=== PATIENT | male | born 1965 | race Caucasian/White ===

== ENCOUNTER 2021-09-02 02:50 | Observation (INO) ==
[2021-09-02] MEDS ORDERED: SODIUM CHLORIDE 0.9% 1000ML 1,000 ML IV STA (03:01)
[2021-09-02] MEDS ORDERED: MoRPHine SULFATE 4 MG/ML 1 ML CARP\\VIAL IV STA ×2 (03:01→04:15)
[2021-09-02] MEDS ORDERED: ONDANSETRON INJ 2 MG/ML 2 ML VIAL IV STA ×2 (03:01→04:40)
[2021-09-02] MEDS ORDERED: KETOROLAC TROMETHAMINE 15 MG/ML VIAL IV STA (03:01)
--- NOTE | 2021-09-02 03:37 | Emergency Department Note ---
History of Present Illness General Chief complaint: Urinary Symptoms Stated complaint: ABD PAIN,BACK,GROIN PAIN,FEEL LIKE NEED TO URINE History of Present Illness Maximum Pain Intensity: 10 This 55-year-old presents to the ER complaining of right flank pain with nausea and vomiting Location: Right flank Quality: Painful Severity: Moderate Duration: Today Timing: Today Context: Patient was in pain and came in Modifying factors: better with nothing; worse with nothing Patient denies chest pain, dyspnea, urinary symptoms, flulike illness. He has had kidney stones before and this feels similar. He does not have a local urologist. Allergies Allergy/AdvReac Type Severity Reaction Status Date / Time No Known Allergies Allergy Verified 09/02/21 05:31 Past Med/Surg History Medical History (Updated 09/02/21 @ 05:31 by Jamee Solomon DO) Kidney stones RACQUEL on CPAP Surgical History (Updated 09/02/21 @ 05:32 by Jamee Solomon DO) History of bowel resection for obstruction with necrosis Family History (Updated 09/02/21 @ 05:32 by Jamee Solomon DO) Other No significant family history Social History (Updated 09/02/21 @ 05:32 by Jamee Solomon DO) Smoking Status: Never smoker Hx Alcohol Use: No Hx Substance Use: No Preferred Language: Croatian Feels Safe at Home: Yes Review of Systems A total of 10 systems reviewed and were otherwise negative Physical Exam Vital Signs Vital Signs - 24 hr 09/02/21 02:53 09/02/21 03:01 09/02/21 05:00 Temperature 36.4 C L Temperature Source Temporal Artery Scan Pulse Rate 88 Respiratory Rate 20 17 Respiratory Effort / Characteristics Non-Labored Non-Labored Respiratory Depth Normal Normal Blood Pressure 205/120 H Blood Pressure Mean 148 Blood Pressure Position Sitting Pulse Oximetry 96 98 99 Oxygen Delivery Method Room Air Room Air Nasal Cannula Oxygen Flow Rate 95 Sepsis Recent Fever Within 48 Hours No Sepsis New/Unexplained Change in Mental Status N/A Sepsis Action Taken by Nursing No Action Required VITALS: Vitals are noted on the nurse's note and reviewed by myself. Vital signs reviewed. GENERAL: White male pacing the room who appears in pain, in no acute distress, nondiaphoretic, well-developed well-nourished. SKIN: The skin was without rashes, erythema, edema, or bruising. There is no tenting of the skin. Capillary reflex less than 2 seconds. HEAD: Normocephalic atraumatic. EARS: External auditory canals clear, EYES: Pupils equal round and reactive to light and accommodation. Conjunctivae without injection, sclerae without icterus. Extraocular movements intact. NOSE: Patent, turbinates without inflammation or discharge. MOUTH: Mucous membranes moist. Pharynx without erythema or exudate. Uvula midline. Airway patent. Tongue does not deviate. NECK: Supple without nuchal rigidity. No lymphadenopathy. No thyromegaly. Cer vical spine is nontender. No JVD. HEART: Regular rate and rhythm LUNGS: Clear to auscultation bilaterally without wheezes, rales or rhonchi. No retractions or accessory muscle use. ABDOMEN: Positive bowel sounds x 4. Normal tympanic percussion. Soft, nontender, without masses or organomegaly. Flynn sign negative. No guarding or rebound tenderness. No CVA tenderness MUSCULOSKELETAL: No muscle atrophy, erythema, or edema noted. NEURO: Patient was alert and oriented to person place and time. Normal sensation to light and sharp touch. No focal neurological deficits. Course Administered Medications Discontinued Medications Hydromorphone HCl (Hydromorphone Inj 0.5 Mg/0.5 Ml Syr) 0.5 mg IV NOW STA Stop: 09/02/21 04:41 Last Admin: 09/02/21 04:54 Dose: 0.5 mg Documented by: [id number] Sodium Chloride (Nss 1000ml) 1,000 mls @ 999 mls/hr IV .Q1H1M STA Stop: 09/02/21 04:01 Last Infusion: 09/02/21 05:43 Dose: 0 mls/hr Documented by: [id number] Admin: 09/02/21 03:35 Dose: 999 mls/hr Documented by: [id number] Ioversol (Optiray 320 100ml) 100 ml IV ONCE ONE Stop: 09/02/21 04:35 Last Admin: 09/02/21 04:35 Dose: 93 ml Documented by: [id number] Ketorolac Tromethamine (Ketorolac Tromethamine 15 Mg/Ml Vial) 10 mg IV NOW STA Stop: 09/02/21 03:02 Last Admin: 09/02/21 03:35 Dose: 10 mg Documented by: [id number] Morphine Sulfate (Morphine Sulfate 4 Mg/Ml 1 Ml Carp\Vial) 4 mg IV NOW STA Stop: 09/02/21 03:02 Last Admin: 09/02/21 03:35 Dose: 4 mg Documented by: [id number] Morphine Sulfate (Morphine Sulfate 4 Mg/Ml 1 Ml Carp\Vial) 4 mg IV NOW STA Stop: 09/02/21 04:16 Last Admin: 09/02/21 04:21 Dose: 4 mg Documented by: [id number] Ondansetron HCl (Ondansetron Inj 2 Mg/Ml 2 Ml Vial) 4 mg IV NOW STA Stop: 09/02/21 03:02 Last Admin: 09/02/21 03:35 Dose: 4 mg Documented by: [id number] Ondansetron HCl (Ondansetron Inj 2 Mg/Ml 2 Ml Vial) 4 mg IV NOW STA Stop: 09/02/21 04:41 Last Admin: 09/02/21 04:54 Dose: 4 mg Documented by: [id number] Tamsulosin HCl (Tamsulosin Hcl 0.4 Mg Cap) 0.4 mg PO NOW ONE Stop: 09/02/21 05:02 Last Admin: 09/02/21 06:00 Dose: 0.4 mg Documented by: [id number] Medical Decision Making Medical Records Attestation: I reviewed the patient's medical records. Home Medications Current Medication List: was personally reviewed by me Laboratory Data Attestation: I reviewed the patient's lab results. Result diagrams: 09/02/21 03:25 09/02/21 03:25 Lab Results 09/02/21 09/02/21 09/02/21 Range/Units 03:25 03:25 03:25 WBC 7.79 (4.8-10.8) K/uL RBC 5.31 (4.7-6.1) M/uL Hgb 15.9 (14.0-18.0) g/dL Hct 45.5 (42-52) % MCV 85.7 (80-100) fL MCH 29.9 (25-34) pg MCHC 34.9 (32-36) g/dL RDW Std Deviation 41.5 (36.4-46.3) fL RDW Coeff of Naomi 13.2 (11.5-14.5) % Plt Count 195 (130-400) K/uL MPV 11.3 H (7.4-10.4) fL Immature Gran % (Auto) 0.1 % Neut % (Auto) 62.9 % Lymph % (Auto) 23.0 % [place] % (Auto) 10.8 % Eos % (Auto) 2.8 % Baso % (Auto) 0.4 % Neut # (Auto) 4.90 (1.4-6.5) K/uL Lymph # (Auto) 1.79 (1.2-3.4) K/uL [place] # (Auto) 0.84 H (0.11-0.59) K/uL Eos # (Auto) 0.22 (0-0.5) K/uL Baso # (Auto) 0.03 (0-0.2) K/uL Immature Gran # (Auto) 0.01 (0.00-0.02) K/uL Sodium 135 L (136-145) mmol/L Potassium 4.0 (3.5-5.1) mmol/L Chloride 101 (98-107) mmol/L Carbon Dioxide 25 (21-32) mmol/L Anion Gap 9 (3-11) BUN 14 (6-23) mg/dl Creatinine 1.03 (0.6-1.4) mg/dl Est Cr Clr Drug Dosing 105.5 ml/min Est GFR ( Amer) 93.0 ml/min Est GFR (Non-Af Amer) 80.3 ml/min BUN/Creatinine Ratio 13.6 (10-20) Glucose 130 H (70-99(Fasting)) mg/dl Calcium 9.2 (8.5-10.1) mg/dl Total Bilirubin 0.7 (0.2-1.0) mg/dl AST 30 (13-39) U/L ALT 27 (7-52) U/L Alkaline Phosphatase 48 (34-104) U/L Total Protein 7.4 (6.0-8.3) gm/dl Albumin 4.6 (3.4-5.0) gm/dl Globulin 2.8 (2.5-4.0) gm/dl Albumin/Globulin Ratio 1.6 (0.9-2) Urine Color Yellow Urine Appearance Clear (Clear) Urine pH 5.0 (4.5-7.5) Ur Specific [place] 1.017 (1.000-1.030) Urine Protein 1+ H (Negative) Urine Glucose (UA) Negative (Negative) Urine Ketones Negative (Negative) Urine Blood 3+ H (Negative) Urine Nitrite Negative (Negative) Urine Bilirubin Negative (Negative) Urine Urobilinogen Negative (Negative) Ur Leukocyte Esterase Negative (Negative) Urine WBC (Auto) 1-5 (0-5) /hpf Urine RBC (Auto) 5-10 H (0-4) /hpf U Hyaline Cast (Auto) 1-5 (0-5) /lpf U Epithel Cells (Auto) 0-5 (0-5) /lpf Urine Bacteria (Auto) Negative (Negative) Imaging Data Attestation: I personally reviewed and interpreted this imaging study as follows: MDM Narrative Prior records/ancillary studies reviewed. Triage Nursing notes reviewed. Additional history obtained from the family. The patient's history was concerning for flank pain. Differential diagnosis: Etiologies such as renal colic, appendicitis, diverticulitis, mesenteric ischemia, aortic pathology, infections, inflammatory bowel disease, PUD, biliary pathology, UTI, as well as others were entertained. Physical examination findings: As above. ER treatment provided: morphine, toradol, zofran , nss, morphine, Dilaudid On reassessment the patient felt better. Diagnostic interpretation by me: The labs revealed mild hyperglycemia without DKA urinalysis revealed There was no sign of UTI. Imaging studies: Preliminary Findings Only See Final Report For Complete Findings CT ABDOMEN & PELVIS With Contrast: IMPRESSION: Punctate right UVJ stone with mild proximal hydroureteronephrosis and prominent perinephric inflammatory stranding/fluid. Punctate nonobstructing stones in the left kidney. No free air or free fluid. Bowel sutures within the right upper quadrant without evidence of obstruction. No evidence of acute appendicitis. Small midline ventral abdominal hernia containing nonobstructed small bowel loops. Hepatic steatosis. Solid organs are otherwise unremarkable on a non-infused exam. Radiologist: Dario Landrum M.D. Consultation: A consultation was placed with the hospitalist. The case was discussed and diagnostics were reviewed. The patient was evaluated in the ER for further treatment. It appears that the patient has isolated renal colic from a right sided stone. Patient was still in severe amount of pain despite multiple rounds of pain meds. Medicine was consulted. He will be evaluated for admission. By the evaluation outlined above emergent etiologies such as appendicitis, diverticulitis, mesenteric ischemia, aortic pathology, infections, inflammatory bowel disease, PUD, biliary pathology, UTI, as well as others were deemed relatively unlikely. The pt informed about the findings as listed above. All questions were answered and pleased with the treatment. The chart was completed utilizing [employer] Speech voice recognition software. Grammatical errors, random word insertions, pronoun errors, and incomplete sentences are an occassional consequence of this system due to software limitations, ambient noise, and hardware issues. Any formal questions or concerns about the content, text, or information contained within the body of this dictation should be directly addressed to the physician compliance assistant for clarification. Impression & Plan Renal colic on right side, Ureterolithiasis, Intractable pain Discharge Plan Visit Data Chief Complaint: Urinary Symptoms Stated Complaint: ABD PAIN,BACK,GROIN PAIN,FEEL LIKE NEED TO URINE ED Provider: Clark Dennison ED Midlevel Provider: Mary Mayfield Discharge Problem: Renal colic on right side, Ureterolithiasis, Intractable pain Patient Disposition: Admitted As Inpatient Condition: Good Forms Stand Alone Forms: My [facility] Referrals Referrals: PCP,NO [Primary Care Provider] -
[2021-09-02 03:41] LABS: Basophils # (auto) 0.03 K/uL (0-0.2); Basophils % (auto) 0.4 %; Eosinophils # (auto) 0.22 K/uL (0-0.5); Eosinophils % (auto) 2.8 %; Hematocrit (blood only) 45.5 % (42-52); Hemoglobin 15.9 g/dL (14.0-18.0); Immature Granulocytes # (auto) 0.01 K/uL (0.00-0.02); Immature Granulocytes % (auto) 0.1 %; Lymphocytes # (auto) 1.79 K/uL (1.2-3.4); Mean Corpuscular Hemoglobin 29.9 pg (25-34); Mean Corpuscular Hgb Conc 34.9 g/dL (32-36); Mean Corpuscular Volume 85.7 fL (80-100); Mean Platelet Volume 11.3 fL (7.4-10.4); Monocytes # (auto) 0.84 K/uL (0.11-0.59); Monocytes % (auto) 10.8 %; Neutrophils % (auto) 62.9 %; Platelet Count 195 K/uL (130-400); RDW Coefficient of Variation 13.2 % (11.5-14.5); RDW Standard Deviation 41.5 fL (36.4-46.3); Red Blood Count 5.31 M/uL (4.7-6.1); White Blood Count 7.79 K/uL (4.8-10.8)
[2021-09-02 04:10] LABS: Albumin Globulin Ratio 1.6 (0.9-2); Albumin Level 4.6 gm/dl (3.4-5.0); BUN Creatinine Ratio 13.6 (10-20); Bilirubin,Total 0.7 mg/dl (0.2-1.0); Calcium 9.2 mg/dl (8.5-10.1); Creatinine Clr Calc Pharmacy 105.5 ml/min; Est GFR (Non-African American) 80.3 ml/min; Globulin 2.8 gm/dl (2.5-4.0); Total Protein 7.4 gm/dl (6.0-8.3)
[2021-09-02 04:17] LABS: Appearance Urine Clear (Clear); Bacteria Urine Automated Negative (Negative); Bilirubin Urine Negative (Negative); Blood Urine 3+ (Negative); Color Urine Yellow; Epithelial Cell Urine Auto 0-5 /lpf (0-5); Glucose Urine UA Negative (Negative); Ketones Urine Negative (Negative); Leukocyte Esterase Urine Negative (Negative); Nitrite Urine Negative (Negative); Protein Urine 1+ (Negative); Specific Gravity Urine 1.017 (1.000-1.030); Urobilinogen Urine Negative (Negative)
[2021-09-02] MEDS ORDERED: OPTIRAY 320 100ml IV ONE (04:34)
[2021-09-02] MEDS ORDERED: HYDROmorphone INJ 0.5 MG/0.5 ML SYR IV STA (04:40)
[2021-09-02] MEDS ORDERED: TAMSULOSIN HCL 0.4 MG CAP PO ONE (05:01)
--- NOTE | 2021-09-02 05:36 | History & Physical Report ---
Date of Service September 02, 2021 Assessment & Plan (1) Ureterolithiasis: Plan: Suspect right sided renal stone. Visible on imaging with apparent stranding. Formal read on imaging pending. UA without bacteria -Admit to medical -Await CT reading -Strain urine -Zofran PRN -Morphine PRN -Toradol PRN -Continue Flomax -Urology consultation appreciated (2) RACQUEL on CPAP: Plan: CPAP qHS - 9cmH20 Plan: F/E/N - LR at 125mL/hr x 2 liters, electrolytes WNL, NPO for now Ppx - Low risk for DVT Code - Full per discussion with patient Dispo - Admit to medical History of Present Illness Chief Complaint: right flank pain Primary Care Provider: NO PCP Kartik Cobos is a 55yo male with history of renal stones presenting with acute onset of right flank pain. Patient was in his usual state of health this evening. Woke up around 23:30 to use the bathroom and developed severe acute right flank pain. Pain travels from back into the groin, intermittent, 10/10 in severity with associated nausea. Similar to prior renal stone pain. No additional complaints. Patient denies chest pain, cough, SOB, abdominal pain, vomiting, diarrhea ER Course: Zofran 4mg IV x 2 Morphine 4mg x 2 Dilaudid 0.5mg Toradol 10mg NSS x 1L Allergies Allergy/AdvReac Type Severity Reaction Status Date / Time No Known Allergies Allergy Verified 09/02/21 05:31 Past Med/Surg History Medical History (Updated 09/02/21 @ 05:31 by Jamee Solomon DO) Kidney stones RACQUEL on CPAP Surgical History (Updated 09/02/21 @ 05:32 by Jamee Solomon DO) History of bowel resection for obstruction with necrosis Family History (Updated 09/02/21 @ 05:32 by Jamee Solomon DO) Other No significant family history Social History (Updated 09/02/21 @ 05:32 by Jamee Solomon DO) Smoking Status: Never smoker Hx Alcohol Use: No Hx Substance Use: No Preferred Language: Guatemalan Feels Safe at Home: Yes Review of Systems Review of Systems: All systems reviewed & are unremarkable except as noted in HPI & below Physical Exam Physical Exam: General: patient resting in mild distress secondary to right flank pain, non-toxic in appearance, AA&O x 4 Skin: warm, dry, intact, no rashes or lesions HEENT: NC/AT, PERRL, EOMI, anicteric sclera, conjunctiva without injection, external ear normal to inspection and nontender, nares patent, moist mucus membranes, dentition intact, no oropharyngeal lesions, neck supple, trachea midline, no LAD, no thyromegaly, no JVD Heart: +S1/S2, regular, no m/r/g Lungs: equal air entry bilaterally, no rales/rhonchi/wheezes Abd: +BS, soft, mildly distended with diminished bowel sounds, no masses/organomegaly/ascites +right sided abdominal pain and flank pain Ext: warm, 2+ pulses in UE/LE bilaterally, no clubbing/cyanosis or edema Neuro: nonfocal, patient AA&O x 4, speech intact, no facial droop, moving all extremities on command with equal strength 5/5 Results & Data Results & Data ([facility]) Vital Signs (Past 12 Hours) Vital Signs Temp Pulse Resp BP Pulse Ox 09/02/21 05:00 17 99 09/02/21 03:01 98 09/02/21 02:53 36.4 C L 88 20 205/120 H 96 Laboratory Results Laboratory Results WBC 7.79 K/uL (4.8-10.8) 09/02/21 03:25 RBC 5.31 M/uL (4.7-6.1) 09/02/21 03:25 Hgb 15.9 g/dL (14.0-18.0) 09/02/21 03:25 Hct 45.5 % (42-52) 09/02/21 03:25 MCV 85.7 fL (80-100) 09/02/21 03:25 MCH 29.9 pg (25-34) 09/02/21 03:25 MCHC 34.9 g/dL (32-36) 09/02/21 03:25 RDW Std Deviation 41.5 fL (36.4-46.3) 09/02/21 03:25 RDW Coeff of Naomi 13.2 % (11.5-14.5) 09/02/21 03:25 Plt Count 195 K/uL (130-400) 09/02/21 03:25 MPV 11.3 fL (7.4-10.4) H 09/02/21 03:25 Immature Gran % (Auto) 0.1 % 09/02/21 03:25 Neut % (Auto) 62.9 % 09/02/21 03:25 Lymph % (Auto) 23.0 % 09/02/21 03:25 [place] % (Auto) 10.8 % 09/02/21 03:25 Eos % (Auto) 2.8 % 09/02/21 03:25 Baso % (Auto) 0.4 % 09/02/21 03:25 Neut # (Auto) 4.90 K/uL (1.4-6.5) 09/02/21 03:25 Lymph # (Auto) 1.79 K/uL (1.2-3.4) 09/02/21 03:25 [place] # (Auto) 0.84 K/uL (0.11-0.59) H 09/02/21 03:25 Eos # (Auto) 0.22 K/uL (0-0.5) 09/02/21 03:25 Baso # (Auto) 0.03 K/uL (0-0.2) 09/02/21 03:25 Immature Gran # (Auto) 0.01 K/uL (0.00-0.02) 09/02/21 03:25 Sodium 135 mmol/L (136-145) L 09/02/21 03:25 Potassium 4.0 mmol/L (3.5-5.1) 09/02/21 03:25 Chloride 101 mmol/L (98-107) 09/02/21 03:25 Carbon Dioxide 25 mmol/L (21-32) 09/02/21 03:25 Anion Gap 9 (3-11) 09/02/21 03:25 BUN 14 mg/dl (6-23) 09/02/21 03:25 Creatinine 1.03 mg/dl (0.6-1.4) 09/02/21 03:25 Est Cr Clr Drug Dosing 105.5 ml/min 09/02/21 03:25 Est GFR ( Amer) 93.0 ml/min 09/02/21 03:25 Est GFR (Non-Af Amer) 80.3 ml/min 09/02/21 03:25 BUN/Creatinine Ratio 13.6 (10-20) 09/02/21 03:25 Glucose 130 mg/dl (70-99(Fasting)) H 09/02/21 03:25 Calcium 9.2 mg/dl (8.5-10.1) 09/02/21 03:25 Total Bilirubin 0.7 mg/dl (0.2-1.0) 09/02/21 03:25 AST 30 U/L (13-39) 09/02/21 03:25 ALT 27 U/L (7-52) 09/02/21 03:25 Alkaline Phosphatase 48 U/L (34-104) 09/02/21 03:25 Total Protein 7.4 gm/dl (6.0-8.3) 09/02/21 03:25 Albumin 4.6 gm/dl (3.4-5.0) 09/02/21 03:25 Globulin 2.8 gm/dl (2.5-4.0) 09/02/21 03:25 Albumin/Globulin Ratio 1.6 (0.9-2) 09/02/21 03:25 Urine Color Yellow 09/02/21 03:25 Urine Appearance Clear (Clear) 09/02/21 03:25 Urine pH 5.0 (4.5-7.5) 09/02/21 03:25 Ur Specific [place] 1.017 (1.000-1.030) 09/02/21 03:25 Urine Protein 1+ (Negative) H 09/02/21 03:25 Urine Glucose (UA) Negative (Negative) 09/02/21 03:25 Urine Ketones Negative (Negative) 09/02/21 03:25 Urine Blood 3+ (Negative) H 09/02/21 03:25 Urine Nitrite Negative (Negative) 09/02/21 03:25 Urine Bilirubin Negative (Negative) 09/02/21 03:25 Urine Urobilinogen Negative (Negative) 09/02/21 03:25 Ur Leukocyte Esterase Negative (Negative) 09/02/21 03:25 Urine WBC (Auto) 1-5 /hpf (0-5) 09/02/21 03:25 Urine RBC (Auto) 5-10 /hpf (0-4) H 09/02/21 03:25 U Hyaline Cast (Auto) 1-5 /lpf (0-5) 09/02/21 03:25 U Epithel Cells (Auto) 0-5 /lpf (0-5) 09/02/21 03:25 Urine Bacteria (Auto) Negative (Negative) 09/02/21 03:[address] Abdomen/Pelvis obtained - read pending PG Care Time/CCT Total # of Minutes Spent Total Time Spent with Patient: Total time spent is greater than 50% in coordination of care (as documented) at patient's floor/unit and/or counseling patient: Coding Level of Care Code 85866 Initial Inpt Care Lvl 2 Diagnoses RACQUEL on CPAP G47.33; Z99.89 Ureterolithiasis N20.1
--- NOTE | 2021-09-02 07:57 | CT Scan Report ---
CT SCAN OF THE ABDOMEN AND PELVIS WITH IV CONTRAST CLINICAL HISTORY: Flank pain COMPARISON STUDY: Abdominal CT dated 06/13/2021. TECHNIQUE: Following the IV administration of 93 cc of Optiray 320, CT scan of the abdomen and pelvi s is performed from the lung bases to the proximal femora. Images are reviewed in the axial, sagittal , and coronal planes. IV contrast was administered without complication. A dose lowering technique wa s utilized adhering to the principles of ALARA. CT DOSE: 1237.64 mGy.cm FINDINGS: Lung bases: The heart is normal in size and without pericardial effusion. The lung bases are clear. T here is a tiny hiatal hernia. Liver: The contrast-enhanced liver is enlarged measuring 22.2 cm in length. The liver demonstrates di ffusely diminished attenuation consistent with hepatic steatosis. Fatty sparing is seen adjacent to g allbladder fossa. There is no intrahepatic biliary ductal dilatation. The hepatic veins and portal ve ins are patent. Gallbladder: Unremarkable. Spleen: Normal in size and attenuation. Pancreas: Unremarkable. Adrenal glands: Unremarkable. Kidneys: The contrast enhanced kidneys are normal in size. There is a 3 mm obstructing calculus protr uding from the right vesicoureteral junction seen on image #[id number]. There is mild to moderate right-side d hydroureteronephrosis with associated right-sided perinephric stranding and fluid. No additional ri ght renal calculi are identified on this contrast-enhanced examination. There are least 2 nonobstruct ing left renal calculi which measure up to 4 mm. There is heterogeneously diminished enhancement of t he right kidney. The left kidney enhances homogeneously. Abdominal vasculature: The abdominal aorta is normal in course and caliber noting moderate to advance d atherosclerotic calcification. Bowel: There are scattered colonic diverticula without CT evidence of acute diverticulitis. Postopera tive change is seen involving the right colon. No bowel obstruction is seen. A periumbilical hernia c ontains a nonobstructed segment of small bowel. The appendix is not identified and may be surgically absent. Peritoneum: There is no intraperitoneal free air or abdominal ascites. A midline surgical scar is not ed. There is a bowel containing periumbilical hernia. Lymphadenopathy: None. Pelvic viscera: The bladder, prostate, and seminal vesicles are normal as visualized. There is eviden ce of bilateral inguinal herniorrhaphy. Skeletal structures: No lytic or blastic lesions are seen. There is mild lumbosacral spondylosis. Scl erotic change is noted in the pubic symphysis. IMPRESSION: 1. A 3 mm obstructing calculus protrudes from the right vesicoureteral junction. This causes mild to moderate right hydroureteronephrosis. 2. Additional nonobstructing calculi are seen in the left kidney. 3. There is heterogeneously diminished enhancement of the right kidney, likely related to obstruction /hydronephrosis. Correlate with clinical findings and urinalysis. 4. Hepatomegaly and hepatic steatosis. 5. A periumbilical hernia contains a nonobstructed segment of small bowel. 6. Additional findings as above. ACT 112: Negative or not required by law. Electronically signed by: Ketan Wesley M.D. 09/02/2021 7:54 AM
[2021-09-02] MEDS ORDERED: ACETAMINOPHEN 325 MG TAB PO PRN (09:11)
[2021-09-02] MEDS ORDERED: MoRPHine SULFATE 4 MG/ML 1 ML CARP\\VIAL IV PRN (09:11)
[2021-09-02] MEDS ORDERED: LACTATED RINGER'S 1,000 ML IV SCH (09:11)
[2021-09-02] MEDS ORDERED: ONDANSETRON INJ 2 MG/ML 2 ML VIAL IV PRN (09:11)
[2021-09-02] MEDS ORDERED: POLYETHYLENE (MIRALAX) 17 GM PACK PO PRN (09:11)
[2021-09-02] MEDS ORDERED: KETOROLAC TROMETHAMINE 15 MG/ML VIAL IV PRN (09:11)
[2021-09-02] MEDS ORDERED: MoRPHine SULFATE 2 MG/ML CARP IV PRN (09:11)
[2021-09-02] MEDS ORDERED: DOCUSATE SODIUM 100 MG CAP PO PRN (09:11)
[2021-09-02] MEDS ORDERED: KETOROLAC TROMETHAMINE 15 MG/ML VIAL ONE (09:22)
--- NOTE | 2021-09-02 11:02 | Urology Consultation ---
Date of Consultation September 02, 2021 Assessment & Plan (1) Ureterolithiasis: 55-year-old male with a right 2 to 3 mm distal ureteral calculus Had a long discussion with patient regarding options for kidney stones. Discussed medical expulsive therapy versus intervention with ureteroscopy and possible stone treatment with stent placement. Explained that there is no guarantee we could treat the stone on the initial attempt and he may require a stent and then a second procedure for stone treatment. Would recommend medical expulsive therapy as he has a reasonably high chance of passing the stone on his own based on size and location. He was agreeable. Continue pain control. Flomax 0.4 mg daily to help with stone passage. Continue to strain urine. Urology will set up outpatient follow-up in 2 weeks with imaging to confirm stone passage History of Present Illness Reason for Consultation: Right distal ureteral calculus Attending Physician: Jamee Solomon DO History of Present Illness 55-year-old male presented the hospital with right flank pain. Afebrile with stable vital signs. Labs reviewed which showed a white blood cell count of 7.79, creatinine of 1.03 which appears to be baseline, and a urinalysis that was negative outside of microscopic hematuria. CT scan was performed and indep endently reviewed. This shows a 2 to 3 mm right UVJ calculus with mild hydroureteronephrosis. Patient was admitted to the medicine service due to pain control but was fairly comfortable when we saw him. He reports previously having a kidney stone that he passed on his own but has never had prior urologic interventions. He is otherwise fairly healthy. Denies any tobacco history. No family history of kidney stones. Allergies Allergy/AdvReac Type Severity Reaction Status Date / Time No Known Allergies Allergy Verified 09/02/21 05:31 Patient History Medical History (Updated 09/02/21 @ 05:31 by Jamee Solomon DO) Kidney stones RACQUEL on CPAP Surgical History (Updated 09/02/21 @ 05:32 by Jamee Solomon DO) History of bowel resection for obstruction with necrosis Family History (Updated 09/02/21 @ 05:32 by Jamee Solomon DO) Other No significant family history Social History (Updated 09/02/21 @ 05:32 by Jamee Solomon DO) Smoking Status: Never smoker Hx Alcohol Use: No Hx Substance Use: No Preferred Language: Welsh Communication Ability: Effective [employer] Required: No Beliefs That Will Affect Care: None Current Living Situation: Spouse Other Information That Helps Us Care for You: No Feels Safe at Home: Yes Assistive Devices: BiPap Review of Systems Review of Systems: 14 point review of systems negative outside of what is listed above in HPI Physical Exam Physical Exam: General: Alert and oriented, no acute distress HEENT: Normocephalic, mucous membranes moist Pulmonary: Nonlabored respirations Abdomen: Nondistended Extremities: Moves all 4 spontaneously Neuro: No gross deficits Skin: Warm, dry, no rashes noted Results & Data ([facility]) Vital Signs (Past 12 Hours) Vital Signs Temp Pulse Pulse Resp BP BP Pulse Ox 09/02/21 09:17 36.6 C 71 16 135/80 98 09/02/21 08:51 70 18 141/89 H 95 09/02/21 05:00 17 99 09/02/21 03:01 98 09/02/21 02:53 36.4 C L 88 20 205/120 H 96 PG Care Time/CCT Total # of Minutes Spent Total Time Spent with Patient: Total time spent is greater than 50% in coordination of care (as documented) at patient's floor/unit and/or counseling patient: [place] [address] Inpt Consult Level 3 Patient Type New Diagnoses Ureterolithiasis N20.1
--- NOTE | 2021-09-02 12:33 | Discharge Summary ---
Date of Service September 02, 2021 Admission HPI Per Admitting Provider Kartik Cobos is a 55yo male with history of renal stones presenting with acute onset of right flank pain. Patient was in his usual state of health this evening. Woke up around 23:30 to use the bathroom and developed severe acute right flank pain. Pain travels from back into the groin, intermittent, 10/10 in severity with associated nausea. Similar to prior renal stone pain. No additional complaints. Patient denies chest pain, cough, SOB, abdominal pain, vomiting, diarrhea ER Course: Zofran 4mg IV x 2 Morphine 4mg x 2 Dilaudid 0.5mg Toradol 10mg NSS x 1L Principal Diagnosis ureterolithiasis Discharge Exam General: patient resting in mild distress secondary to right flank pain, non- toxic in appearance, AA&O x 4 Skin: warm, dry, intact, no rashes or lesions HEENT: NC/AT, PERRL, EOMI, anicteric sclera, conjunctiva without injection, external ear normal to inspection and nontender, nares patent, moist mucus membranes, dentition intact, no oropharyngeal lesions, neck supple, trachea midline, no LAD, no thyromegaly, no JVD Heart: +S1/S2, regular, no m/r/g Lungs: equal air entry bilaterally, no rales/rhonchi/wheezes Abd: +BS, soft, mildly distended with diminished bowel sounds, no masses/organomegaly/ascites +right sided abdominal pain and flank pain Ext: warm, 2+ pulses in UE/LE bilaterally, no clubbing/cyanosis or edema Neuro: nonfocal, patient AA&O x 4, speech intact, no facial droop, moving all extremities on command with equal strength 5/5 Discharge Data Allergies Allergy/AdvReac Type Severity Reaction Status Date / Time No Known Allergies Allergy Verified 09/02/21 23:32 Consultations 09/02/21 05:01 ED Decision to Admit Stat 09/02/21 08:41 Consult Urology Routine 09/02/21 09:11 Consult Urology Routine Ordered Studies 09/02/21 03:01 CT abd pelvis IV con only Urgent Hospital Course (1) Ureterolithiasis: Suspect right sided renal stone. Visible on imaging with apparent stranding. Formal read on imaging pending. UA without bacteria -Admit to medical -Await CT reading -Strain urine -Zofran PRN -Morphine PRN -Toradol PRN -Continue Flomax -Urology consultation appreciated Patient seen at bedside on 09/02/21 Appreciate input from Urology. Had a long discussion with patient regarding options for kidney stones. Discussed medical expulsive therapy versus intervention with ureteroscopy and possible stone treatment with stent placement. Explained that there is no guarantee we could treat the stone on the initial attempt and he may require a stent and then a second procedure for stone treatment. Would recommend medical expulsive therapy as he has a reasonably high chance of passing the stone on his own based on size and location. He was agreeable. Continue pain control. Flomax 0.4 mg daily to help with stone passage. Continue to strain urine. Urology will set up outpatient follow-up in 2 weeks with imaging to confirm stone passage Patient is agreeable to discharge. (2) RACQUEL on CPAP: CPAP qHS - 9cmH20 F/E/N - LR at 125mL/hr x 2 liters, electrolytes WNL, NPO for now Ppx - Low risk for DVT Code - Full per discussion with patient Total Time Total Time Spent Total Time Spent (In Minutes): 35 Discharge Plan Discharge Items Patient Disposition: Home - Self-Care Reason For Visit: RENAL STONE Discharge Diagnosis: renal stone Condition on Discharge: Good Activity: Resume your previous activity Non-emergency contact: Primary Care Provider Call non-emergency contact if: you have any medication questions Follow-up/Referrals: PCP,NO [Primary Care Provider] - Diet: Regular Addtl Attending Provider Instructions: Mr. Cobos, It was a pleasure having you during this short hospital stay. You were evaluated by Urology who recommended to continue with flomax one pill in the morning. This medication will help dilate your ureter to facilitate the passage of the stone. Please continue to strain your urine. In regards to pain control, you may use tylenol. I will also prescribe tramadol for moderate to severe pain. Urology will set up outpatient follow-up in 2 weeks with imaging to confirm stone passage. Wish you the best, and hope you enjoy your time in the [facility]. Camilo Araujo Pending Studies at Discharge: No Stand-Alone Forms: [email or web address], Smoking Cessation Medications and DC Order Prescriptions: New tamsulosin 0.4 mg capsule 0.4 mg PO DAILY Qty: 14 RF: 2 tramadol 50 mg tablet 50 mg PO Q8H PRN (Reason: pain) Qty: 20 RF: 0 No Action acetaminophen 325 mg tablet 650 mg PO Q4H PRN (Reason: Pain) RF: 0 Discharge Orders: Discharge Order (Routine); Ordered 09/02/21 Ordered By: Camilo Hernandez/Other Patient Handouts: Understanding Kidney Stones, Treating Kidney Stones: Medicines, Preventing Kidney Stones Admission Data Admit Date/Time: 09/02/21 05:27 Attending Provider: Camilo Araujo Admit Provider: Jamee Solomon Primary Care Provider: PCP,NO Other Providers: Jamee Solomon ; Pawel Nettles ; Yoan Okeefe. Other Interventions: Discharge Summary Assessment (RN) Last Done: 09/02/21 13:18 Coding Level of Care Code 93053 OBS Care - Discharge Diagnoses Ureterolithiasis N20.1 RACQUEL on CPAP G47.33; Z99.89
== END 2021-09-02 18:47 | disposition home or self-care (01) ==
LOC: ED 02:50 → SUATTDRO 05:27 → INTOOBSV 05:27 → EDINP 05:27